=== PATIENT | male | born 1980 | race African-American/Black ===

== ENCOUNTER 2016-04-11 18:45 | Emergency (ER) | payer OTHER ==
[~2016-04-11] VITALS: Ht 165.1 cm; Wt 74.8 kg
[~2016-04-11 18:45] MED LIST: BACTRIM DS TAB1 EAC1 ORAL; CEPHALEXIN500 MG ORAL; IBUPROFEN600 MG PO; NORCO 5-325 TA1 EACH ORAL; TYLENOL EXTRA500 MG ORAL; VICODIN1 TA1 PO
[2016-04-11 19:19] VITALS: BP 149/85
[2016-04-11] MEDS ORDERED: ZOFRAN4 M3 ORAL (19:32)
[2016-04-11 19:45] VITALS: BP 149/85
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
== END 2016-04-11 19:45 | disposition home or self-care (01) ==
LOC: EMR 19:16
DX: R11.0 Nausea (principal); R42 Dizziness and giddiness; R51 Headache
CPT/HCPCS: 99282

== ENCOUNTER 2017-01-14 16:41 | Emergency (ER) | payer OTHER ==
[~2017-01-14] VITALS: Ht 165.1 cm; Wt 74.8 kg
[~2017-01-14 16:41] MED LIST changes: +ZOFRAN4 M3 ORAL
--- NOTE | 2017-01-14 18:06 | Emergency Room Report ---
History of Present Illness General Chief Complaint: Skin Rash/Abscess Source: Patient Present Illness HPI 36 YO male presents to the emergency department complaining of swelling, erythema, tenderness, discharge from lesion on the left side of the groin x2 days. Patient reports pain is 4/10 in severity and is exacerbated upon squeezing or palpation. Patient denies joint pain, swelling tender lymph nodes , penile discharge, testicular swelling, testicular pain, hematuria, dysuria, frequency, abdominal pain, fevers or chills. Patient reports recent unprotected intercourse he denies history of STDs. Denies lesions/rashes elsewhere on the body. Denies new medications or body washes or creams. Denies swelling of the lips, tongue , throat or airway. Denies wheezing, or shortness of breath. Denies recent travel, recent illness or ill contacts. denies blisters, oral lesions, or sloughing of the skin. Denies CP, Palpitations, LOC , AMS, dizziness, Changes in Vision, Sensation, paresthesias, or a sudden severe headache. Allergies: Coded Allergies: No Known Allergies (Unverified , 08/06/12) Patient History Past Medical History: see triage record Past Surgical History: none Pertinent Family History: none Immunizations: UTD Reviewed Nursing Documentation: PMH: Agreed, PSxH: Agreed Nursing Documentation-PMH Past Medical History: No History, Except For Hx Hypertension: Yes Review of Systems All Other Systems: negative except mentioned in HPI Physical Exam Vital Signs Date Time Temp Pulse Resp B/P (MAP) Pulse Ox O2 Delivery O2 Flow Rate FiO2 01/14/17 16:58 98.1 64 16 147/73 98 Room Air Sp02 EP Interpretation: reviewed, normal General Appearance: no apparent distress, alert, GCS 15, non-toxic Head: normocephalic, atraumatic Eyes: bilateral eye normal inspection, bilateral eye PERRL ENT: hearing grossly normal, normal pharynx, no angioedema, normal voice Neck: full range of motion, supple/symm/no masses Respiratory: chest non-tender, lungs clear, normal breath sounds, no wheezing, speaking full sentences Cardiovascular #1: regular rate, rhythm Gastrointestinal: normal bowel sounds, non tender, soft, no guarding, no rebound Rectal: deferred Genitourinary: normal inspection, no CVA tenderness, penis normal, scrotum normal, other - 1.5 cm draining soft tissue abscess at the base of the penis on the left side, palpable induration, palpable tunneled induration and green d/ c noted. no additional LAD Musculoskeletal: back normal, gait/station normal, normal range of motion, non- tender Neurologic: alert, oriented x3, responsive, motor strength/tone normal, sensory intact, speech normal Psychiatric: judgement/insight normal, memory normal, mood/affect normal Skin: normal color, no rash, warm/dry, well hydrated, other - 1.5 cm draining soft tissue abscess at the base of the penis on the left side, palpable induration, palpable tunneled induration and green d/c noted. no additional LAD Lymphatic: no adenopathy Medical Decision Making PA Attestation Dr. Aguirre is my supervising Physician whom patient management has been discussed with. Diagnostic Impression: Primary Impression: Abscess ER Course 36 YO male presents to the emergency department complaining of swelling, erythema, tenderness, discharge from lesion on the left side of the groin x2 days. Patient reports pain is 4/10 in severity and is exacerbated upon squeezing or palpation. Patient denies joint pain, swelling tender lymph nodes , penile discharge, testicular swelling, testicular pain, hematuria, dysuria, frequency, abdominal pain, fevers or chills. Patient reports recent unprotected intercourse he denies history of STDs. Denies lesions/rashes elsewhere on the body. Denies new medications or body washes or creams. Denies swelling of the lips, tongue , throat or airway. Denies wheezing, or shortness of breath. Denies recent travel, recent illness or ill contacts. denies blisters, oral lesions, or sloughing of the skin. Denies CP, Palpitations, LOC , AMS, dizziness, Changes in Vision, Sensation, paresthesias, or a sudden severe headache. Ddx considered but are not limited to cellulitis, abscess, cystic acne, necrotizing fasciitis, insect bite, LGV Vital signs: are WNL, pt. is afebrile H&PE are most consistent with draining soft tissue abscess at the base of the penis on the left side, suspicious for LGV due to induration, palpable tunneled induration and green d/c noted. no additional LAD. ORDERS: none required at this time, the diagnosis is clinical ED INTERVENTIONS: -Rocephin IM d/w pt. conservative treatment, and to follow up with a primary care provider. pt given a list of primary care clinics for follow up. d/w pt. to return to the ED with worsening or new symptoms. DISCHARGE: At this time pt. is stable for d/c to home. Will provide printed patient care instructions, and any necessary prescriptions. Care plan and follow up instructions have been discussed with the patient prior to discharge. Last Vital Signs Date Time Temp Pulse Resp B/P (MAP) Pulse Ox O2 Delivery O2 Flow Rate FiO2 01/14/17 16:58 98.1 64 16 147/73 98 Room Air Disposition: HOME, SELF-CARE Condition: Stable Scripts Ibuprofen* (MOTRIN*) 600 Mg Tablet 600 MG ORAL THREE TIMES A DAY, #30 TAB 0 Refills Prov: Jill Amaro 01/14/17 Mupirocin* (MUPIROCIN*) 22 Gm Oint...g. 1 APPLIC TOPIC THREE TIMES A DAY, #22 GM Prov: Jill Amaro 01/14/17 Doxycycline Hyclate* (VIBRAMYCIN*) 100 Mg Capsule 100 MG ORAL EVERY 12 HOURS for 7 Days, #14 CAP 0 Refills Prov: Jill Amaro 01/14/17 Patient Instructions: Abscess Additional Instructions: Take medications as directed. Follow up with a Primary Care Provider in 3 days, even if your symptoms have resolved. --Please review list of primary care clinics, if you do not already have a primary care provider Return sooner to ED if new symptoms occur, or current symptoms become worse. - Please note that this Emergency Department Report was dictated using [employer] scales operator technology software, occasionally this can lead to erroneous entry secondary to interpretation by the dictation equipment. Jill Amaro Jan 14, 2017 18:06
[2017-01-14] MEDS ORDERED: VIBRAMYCIN100 MG ORAL (18:07)
[2017-01-14] MEDS ORDERED: MUPIROCIN22 GM TOPIC (18:07)
[2017-01-14] MEDS ORDERED: IBUPROFEN600 MG ORAL (18:07)
[2017-01-14] MEDS ORDERED: Lidocaine 1% MPF 10mg/ml 5ml IM ONE (18:15)
[2017-01-14 18:40] VITALS: BP 136/76
== END 2017-01-14 18:40 | disposition home or self-care (01) ==
LOC: EMR 17:30
DX: L02.214 Cutaneous abscess of groin (principal); I10 Essential (primary) hypertension
CPT/HCPCS: 96372; 99284; J0696

== ENCOUNTER 2017-04-25 12:36 | Emergency (ER) | payer OTHER ==
[~2017-04-25] VITALS: Ht 165.1 cm; Wt 70.3 kg
[~2017-04-25 12:36] MED LIST changes: +IBUPROFEN600 MG ORAL; +MUPIROCIN22 GM TOPIC; +VIBRAMYCIN100 MG ORAL
[2017-04-25 12:51] VITALS: BP 155/90
[2017-04-25 13:13] VITALS: BP 124/80
[2017-04-25] MEDS ORDERED: AMOXICILLIN500 MG ORAL (13:13)
[2017-04-25] MEDS ORDERED: ACETAMINOPHEN-1 EAC1 ORAL (13:13)
[2017-04-25 13:14] VITALS: BP 124/80
--- NOTE | 2017-04-25 14:58 | Emergency Room Report ---
History of Present Illness General Chief Complaint: Toothache Source: Patient, Medical Record Present Illness HPI 36-year-old male presents ED complaining of tooth pain x4 days. Notes pain in the left lower jaw. Throbbing, 7/10, nonradiating. Scheduled to see a dentist tomorrow. Denies fevers or chills. No other aggravating or relieving factors. Denies any other associated symptoms Allergies: Coded Allergies: No Known Allergies (Unverified , 08/06/12) Patient History Past Medical History: HTN Past Surgical History: none Pertinent Family History: none Social History: Denies: smoking, alcohol use, drug use Immunizations: UTD Reviewed Nursing Documentation: PMH: Agreed, PSxH: Agreed Nursing Documentation-PMH Past Medical History: No History, Except For Hx Hypertension: Yes Review of Systems All Other Systems: negative except mentioned in HPI Physical Exam Vital Signs Date Time Temp Pulse Resp B/P (MAP) Pulse Ox O2 Delivery O2 Flow Rate FiO2 04/25/17 12:44 98.1 80 18 155/90 99 Room Air Sp02 EP Interpretation: reviewed, normal General Appearance: no apparent distress, alert, GCS 15, non-toxic Head: normocephalic Eyes: bilateral eye normal inspection, bilateral eye PERRL ENT: hearing grossly normal, normal pharynx, no angioedema, normal voice, other - multiple dental caries in L lower jaw. no abscess/induration/ fluctuance Neck: full range of motion, supple/symm/no masses Respiratory: normal inspection Cardiovascular #1: normal inspection Gastrointestinal: normal inspection Rectal: deferred Genitourinary: no CVA tenderness Musculoskeletal: normal inspection Neurologic: alert, oriented x3, responsive, motor strength/tone normal, sensory intact, speech normal Psychiatric: normal inspection Skin: normal inspection Lymphatic: normal inspection Medical Decision Making Diagnostic Impression: Primary Impression: Toothache ER Course 36-year-old male presents ED complaining of tooth pain. Cracked tooth, dental abscess, cavity Patient placed on stretcher. After initial history, physical exam reveals a male in no distress. There multiple dental caries. There is no definitive abscess or induration. We will prescribe antibiotics and pain medications until patient can see his dentist Diagnosis- toothache Stable and discharged to home prescription for Tylenol #3 and amoxicillin. Instructed to see dentist as a walk-in this week. Return to ED if symptoms recur or worse Last Vital Signs Date Time Temp Pulse Resp B/P (MAP) Pulse Ox O2 Delivery O2 Flow Rate FiO2 04/25/17 13:14 98.1 18 124/80 99 Room Air 04/25/17 12:44 80 Status: improved Disposition: HOME, SELF-CARE Condition: Stable Scripts Amoxicillin* (AMOXIL*) 500 Mg Capsule 500 MG ORAL THREE TIMES A DAY, #21 CAP Prov: RONNIE KIMBALL M.D. 04/25/17 Acetaminophen With Codeine (T#3) (TYLENOL #3 TAB*) Y Tab 1 TAB ORAL Q8H Y for For Pain, #20 TAB Prov: RONNIE KIMBALL M.D. 04/25/17 Patient Instructions: Dental Pain RONNIE KIMBALL M.D. Apr 25, 2017 14:58
== END 2017-04-25 13:31 | disposition home or self-care (01) ==
LOC: EMR 13:02
DX: K08.89 Other specified disorders of teeth and supporting structures (principal); I10 Essential (primary) hypertension
CPT/HCPCS: 99284

== ENCOUNTER 2017-07-21 11:46 | Emergency (ER) | payer OTHER ==
[~2017-07-21] VITALS: Ht 162.6 cm; Wt 68.0 kg
[~2017-07-21 11:46] MED LIST changes: +ACETAMINOPHEN-1 EAC1 ORAL; +AMOXICILLIN500 MG ORAL
[2017-07-21 12:06] VITALS: BP 149/89
[2017-07-21] MEDS ORDERED: FLUCONAZOLE100 MG ORAL (12:18)
[2017-07-21] MEDS ORDERED: LOTRIMIN AF24 GM TP (12:18)
--- NOTE | 2017-07-21 12:19 | Emergency Room Report ---
History of Present Illness General Chief Complaint: Skin Rash/Abscess Source: Patient Present Illness HPI Patient is a 36-year-old male who presents to the ED with complaints of a rash in his groin that began 5 months ago. He states the rash is itching. He denies any pain. He's been using [id number] Lotrimin cream with minimal improvement. She denies fever, chills or associated symptoms. Denies any new lotions, soaps, detergents or medications. He has no significant medical problems and denies tobacco, alcohol or drug use. Allergies: Coded Allergies: No Known Allergies (Unverified , 07/21/17) Patient History Reviewed Nursing Documentation: PMH: Agreed; PSxH: Agreed Nursing Documentation-PMH Past Medical History: No Stated History Hx Hypertension: Yes Review of Systems Skin: Reports: rash Physical Exam Vital Signs Date Time Temp Pulse Resp B/P (MAP) Pulse Ox O2 Delivery O2 Flow Rate FiO2 07/21/17 11:53 97.8 46 18 149/89 99 Room Air 97.9 Sp02 EP Interpretation: reviewed, normal General Appearance: no apparent distress, alert, GCS 15, non-toxic Head: normocephalic, atraumatic Eyes: bilateral eye normal inspection, bilateral eye PERRL ENT: hearing grossly normal, normal pharynx, no angioedema, normal voice Neck: full range of motion, supple/symm/no masses Respiratory: chest non-tender, lungs clear, normal breath sounds, speaking full sentences Cardiovascular #1: regular rate, rhythm, no edema Cardiovascular #2: 2+ carotid (R), 2+ carotid (L), 2+ radial (R), 2+ radial (L) , 2+ dorsalis pedis (R), 2+ dorsalis pedis (L) Gastrointestinal: normal bowel sounds, non tender, soft, non-distended, no guarding, no rebound Rectal: deferred Genitourinary: normal inspection, no CVA tenderness Musculoskeletal: back normal, gait/station normal, normal range of motion, non- tender, calf tenderness Neurologic: alert, oriented x3, responsive, motor strength/tone normal, sensory intact, speech normal Psychiatric: judgement/insight normal, memory normal, mood/affect normal, no suicidal/homicidal ideation Reflexes: 3+ bicep (R), 3+ bicep (L), 3+ tricep (R), 3+ tricep (L), 3+ knee (R) , 3+ knee (L) Skin: normal color, warm/dry, well hydrated, other - hyperpigmentation in the left groin extending up to the left scrotum. No lesions or skin breadkown. no evidence of infection Lymphatic: no adenopathy Medical Decision Making PA Attestation My supervising physician Dr. Frederick Diagnostic Impression: Primary Impression: Tinea cruris ER Course Findings consistent with tinea cruris. Patient is instructed to continue using Lotrimin lotion and is given a prescription for fluconazole to take for 2 weeks. Last Vital Signs Date Time Temp Pulse Resp B/P (MAP) Pulse Ox O2 Delivery O2 Flow Rate FiO2 07/21/17 12:06 97.9 18 149/89 99 Room Air 97.9 07/21/17 11:53 46 Disposition: HOME, SELF-CARE Condition: Serious Scripts Clotrimazole (Lotrimin AF) 12 Gm Cream..g. 24 GM TP QID, #30 GM Prov: Stormy Melgoza 07/21/17 Fluconazole (FLUCONAZOLE) 100 Mg Tablet 100 MG ORAL weekly PRN for weekly, #2 TAB 0 Refills Prov: Stormy Melgoza 07/21/17 Patient Instructions: Stormy Rivas Jul 21, 2017 12:19
[2017-07-21 12:30] VITALS: BP 149/89
== END 2017-07-21 13:00 | disposition home or self-care (01) ==
LOC: EMR 12:18
DX: B35.6 Tinea cruris (principal)
CPT/HCPCS: 99284